=== PATIENT | male | born 2000 | race African-American/Black ===

== ENCOUNTER 2021-05-04 13:23 | Emergency (ER) | payer OTHER ==
[~2021-05-04] VITALS: Ht 175.3 cm; Wt 60.8 kg
[2021-05-04 14:06] LABS: INFLUENZA A ANTIGEN Negative (Negative); INFLUENZA B ANTIGEN Negative (Negative)
[2021-05-04] MEDS ORDERED: MEDROLDOSEPACK PO (14:30)
[2021-05-04 14:46] VITALS: BP 144/51
== END 2021-05-04 14:47 | disposition home or self-care (01) ==
LOC: M.ERS 13:23
PROVIDERS: Emergency Medicine
DX: J06.9 Acute upper respiratory infection, unspecified (principal); Z20.822 Contact with and (suspected) exposure to COVID-19; J45.909 Unspecified asthma, uncomplicated